=== PATIENT | female | born 1995 | race Caucasian/White ===

== ENCOUNTER 2019-05-09 11:17 | Emergency (ER) | payer OTHER, SELFPAY ==
[2019-05-09 11:40] VITALS: BP 118/67; PULSE 87; RESP 16; TEMP 36.2; O2SAT 99
[2019-05-09 11:53] LABS: Add Manual Diff / Slide Review NO; Basophils Absolute Auto 0 /uL (0-100); Basophils Percent Auto 0.5 % (0-2); Eosinophils Absolute Auto 100 /uL (0-450); Eosinophils Percent Auto 1.3 % (2-4); Hematocrit 39.1 % (36-46); Lymphocytes Absolute Auto 2200 /uL (1100-4500); Lymphocytes Percent Auto 36.3 % (25-40); Mean Corpuscular HGB Conc 33.3 % (30-36); Mean Corpuscular Hemoglobin 27.3 PG (26-34); Mean Corpuscular Volume 82.1 fL (80-100); Monocytes Absolute Auto 600 /uL (0-900); Monocytes Percent Auto 9.5 % (3-14); Neutrophils Absolute Auto 3100 /uL (1500-7000); Neutrophils Percent Auto 52.4 % (50-75); Platelet Count 298 X10^3/uL (150-400); Red Blood Cell Count 4.76 X10^6/uL (4.0-5.2); Red Cell Distribution Width 14.4 % (11.6-14.8)
[2019-05-09 12:04] LABS: Blood Urea Nitrogen 19 mg/dL (7-17); Calcium 9.6 mg/dL (8.4-10.2); Carbon Dioxide 27 mmol/L (22-32); Chloride 103 mmol/L (98-107); Estimated Glomerular Filt Rate > 60.0 mL/min (>60); Glucose 105 mg/dL (70-100); HEMOLYSIS < 15 (0-50); Potassium 3.8 mmol/L (3.4-5.1); Sodium 140 mmol/L (137-145)
--- NOTE | 2019-05-09 12:05 | ED.HA ---
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 She went in for a regular checkup as it is time for her new prescription and during the exam she was found to have bilateral optic disc swelling. She denies any known visual change. She does state that she has had episodes of headaches off and on for many months but no other neurologic symptoms. She denies any injury. She has had no fever or chills. She did have an episode like this a few years ago and had a normal MRI and lumbar puncture and symptoms improved after she stopped taking her oral contraceptive. She was sent here for evaluation. She denies any ataxia, confusion or trouble controlling her bladder MD Complaint: headache Onset (ago): month(s) Onset description: gradual Location: diffuse Severity: moderate Quality: aching Relieving factors: nothing Exacerbating factors: none Associated symptoms: none Treatments prior to arrival: none Related Data Home Medications Medication Instructions Recorded Confirmed No Known Home Medications 05/09/19 05/09/19 Allergies Allergy/AdvReac Type Severity Reaction Status Date / Time No Known Drug Allergies Allergy Verified 05/09/19 12:08 Review of Systems Constitutional Constitutional: Denies chills, Denies fatigue, Denies fever(s), Denies frequent falls, Reports headache(s), Denies lethargy and Denies weakness Eyes Eyes: Denies change in vision, Denies eye discharge, Denies irritation and Denies loss of vision ENT Ears, Nose, Mouth, and Throat: Denies change in voice, Denies dizziness, Reports headache(s), Denies neck pain, Denies sore throat and Denies throat swelling Cardiovascular Cardiovascular: Denies chest pain, Denies irregular heart rhythm, Denies lightheadedness, Denies palpitations, Denies dyspnea, Denies dyspnea on exertion and Denies orthopnea Respiratory Respiratory: Denies cough, Denies dyspnea, Denies dyspnea on exertion and Denies wheezing Gastrointestinal Gastrointestinal: Denies abdominal pain, Denies change in bowel habits, Denies diarrhea, Denies nausea and Denies vomiting Genitourinary Genitourinary: Denies hematuria, Denies flank pain, Denies urinary incontinence and Denies urinary urgency Musculoskeletal Musculoskeletal: Denies back pain, Denies muscle weakness, Denies neck pain, Denies numbness and Denies tingling Integumentary/Breasts Skin/Breast: Denies pruritus, Denies erythema, Denies rash and Denies wounds Neurologic Neurologic: Denies behavioral changes, Denies confusion, Denies dizziness, Denies frequent falls, Reports headache(s), Denies loss of vision, Denies numbness, Denies tingling and Denies weakness Psychiatric Psychiatric: Denies anxiety, Denies behavioral changes, Denies confusion, Denies depression, Denies homicidal ideation and Denies suicidal ideation Endocrine Endocrine: Denies fatigue, Denies flushing and Denies palpitations Hematologic/Lymphatic Hematologic/Lymphatic: Denies easy bruising Allergic/Immunologic Allergic/Immunologic: Denies urticaria, Denies throat swelling and Denies wheezing PFSH Social History Smoking Status: Never smoker Social History Smoking Status: Never smoker Exam Narrative Exam Narrative: GENERAL: [23] year old patient appears stated age. Well-nourished, well-developed patient, in mild distress. HEAD: Atraumatic. Normocephalic. EYES: Pupils equal round and reactive. Extraocular motions intact. No scleral icterus. No injection or drainage. ENT: Nose without bleeding, purulent drainage. Throat without erythema, tonsillar hypertrophy or exudate. Airway patent. NECK: Trachea midline. Non tender CARDIOVASCULAR: Regular rate and rhythm without murmurs, gallops, or rubs. RESPIRATORY: Clear to auscultation. Breath sounds equal bilaterally. No wheezes, rales, or rhonchi. GASTROINTESTINAL: Abdomen soft, non-tender, nondistended. EXTREMITIES: No edema or joint tenderness. BACK: Nontender without deformity or crepitance. No flank tenderness. NEURO: AOx3. SKIN: No rash or erythema of visible areas NIH Stroke Scale 1a. LOC: Patient is alert and keenly responsive (0) 1b. LOC Questions: Patient answers both LOC questions accurately (0) 1c. LOC Commands: Patient performs both tasks correctly (0) 2. Best Gaze: Normal (0) 3. Visual: No visual loss (0) 4. Facial palsy: Normal symmetrical movements (0) 5. Motor arm: No drift (0) 6. Motor leg: No drift (0) 7. Limb ataxia: Absent (0) 8. Sensory: Normal (0) 9. Best language: No aphasia; normal (0) 10. Dysarthria: Normal (0) 11. Extinction and inattention: No abnormality (0) NIHSS: 0 Initial Vital Signs Initial Vital Signs: Vital Signs Temperature 97.2 F L 05/09/19 11:40 Pulse Rate 87 05/09/19 11:40 Respiratory Rate 16 05/09/19 11:40 Blood Pressure 118/67 05/09/19 11:40 Pulse Oximetry 99 05/09/19 11:40 Procedures Lumbar Puncture Time Out Performed: Yes Patient Position: right lateral decubitus Skin Prep: Povidone-Iodine 1% Local Anesthetic: lidocaine 1% Spinal Needle Gauge: 22G Interspace Used: L4-L5 Complications: Need to have other Practitioner Attempt Course Orders Ordered: ED Orders 05/09/19 11:35 Basic Metabolic Panel Stat Complete Blood Count AUTO DIFF Stat Partial Thromboplastin Time Stat Prothrombin Time INR Stat 05/09/19 12:11 MR angio head wo con Stat MR head/brain wo/w con Stat 05/09/19 17:11 CSF culture Stat Cell Count w Diff CSF Stat Glucose CSF Stat HOLD TUBE CSF Stat Total Protein CSF Stat Consultations Consultation #1: Discussion not only with the patient's own kersey department supervisor but also our Ophthalmology to create a cohesive plan. Both specialists are in agreement that an MRI of the brain with and without as well as an MRA with attention to venous flow are appropriate followed by lumbar puncture. In the absence of any significant findings there is no specific therapy or treatment recommended other than close follow-up with the PCP who can coordinate the efforts of Ophthalmology and possibly Neurology. I had extensive discussion with the patient and her family. They have had their questions answered to their apparent satisfaction have a firm grasp of return precautions Vital Signs Vital signs: Vital Signs - 8 hr 05/09/19 11:40 05/09/19 12:55 05/09/19 13:00 Temperature 97.2 F L Pulse Rate 87 76 81 Respiratory Rate 16 17 16 Blood Pressure 118/67 Blood Pressure [Right Arm] 108/68 92/59 L Pulse Oximetry 99 98 99 05/09/19 14:00 Temperature Pulse Rate 94 H Respiratory Rate 16 Blood Pressure Blood Pressure [Right Arm] 103/56 L Pulse Oximetry 100 MDM - Headache Lab Data Result diagrams: 05/09/19 11:35 05/09/19 11:35 Labs: Lab Results 05/09/19 05/09/19 05/09/19 Range/Units 11:35 11:35 11:35 WBC 6.0 (4.5-11.0) X10^3/uL RBC 4.76 (4.0-5.2) X10^6/uL Hgb 13.0 (12.0-16.0) g/dL Hct 39.1 (36-46) % MCV 82.1 (80-100) fL MCH 27.3 (26-34) PG MCHC 33.3 (30-36) % RDW 14.4 (11.6-14.8) % Plt Count 298 (150-400) X10^3/uL Neut % (Auto) 52.4 (50-75) % Lymph % (Auto) 36.3 (25-40) % [place] % (Auto) 9.5 (3-14) % Eos % (Auto) 1.3 L (2-4) % Baso % (Auto) 0.5 (0-2) % Neut # (Auto) 3100 (5659-5459) /uL Lymph # (Auto) 2200 (1626-4698) /uL [place] # (Auto) 600 (0-900) /uL Eos # (Auto) 100 (0-450) /uL Baso # (Auto) 0 (0-100) /uL PT 11.1 (10.1-12.7) SECONDS INR 1.0 (0.9-1.3) APTT 37 H (26.4-36.2) SECONDS Sodium 140 (137-145) mmol/L Potassium 3.8 (3.4-5.1) mmol/L Chloride 103 (98-107) mmol/L Carbon Dioxide 27 (22-32) mmol/L BUN 19 H (7-17) mg/dL Creatinine 0.50 L (0.52-1.04) mg/dL Estimated GFR > 60.0 (>60) mL/min BUN/Creatinine Ratio 38.0 H (6-22) Glucose 105 H (70-100) mg/dL Calcium 9.6 (8.4-10.2) mg/dL CSF Tube Number CSF Volume CSF Appearance (Clear) CSF Color (Colorless) CSF WBC (0-5) MONO/uL CSF RBC RBC /uL CSF Mononuclear WBCs CSF Polynuclear WBCs CSF Glucose (40-70) mg/dL CSF Total Protein (12-60) mg/dL 05/09/19 Range/Units 17:11 WBC (4.5-11.0) X10^3/uL RBC (4.0-5.2) X10^6/uL Hgb (12.0-16.0) g/dL Hct (36-46) % MCV (80-100) fL MCH (26-34) PG MCHC (30-36) % RDW (11.6-14.8) % Plt Count (150-400) X10^3/uL Neut % (Auto) (50-75) % Lymph % (Auto) (25-40) % [place] % (Auto) (3-14) % Eos % (Auto) (2-4) % Baso % (Auto) (0-2) % Neut # (Auto) (0061-9736) /uL Lymph # (Auto) (1128-1634) /uL [place] # (Auto) (0-900) /uL Eos # (Auto) (0-450) /uL Baso # (Auto) (0-100) /uL PT (10.1-12.7) SECONDS INR (0.9-1.3) APTT (26.4-36.2) SECONDS Sodium (137-145) mmol/L Potassium (3.4-5.1) mmol/L Chloride (98-107) mmol/L Carbon Dioxide (22-32) mmol/L BUN (7-17) mg/dL Creatinine (0.52-1.04) mg/dL Estimated GFR (>60) mL/min BUN/Creatinine Ratio (6-22) Glucose (70-100) mg/dL Calcium (8.4-10.2) mg/dL CSF Tube Number 2 CSF Volume 2.0 ml CSF Appearance Clear (Clear) CSF Color Colorless (Colorless) CSF WBC 2 (0-5) MONO/uL CSF RBC 1 RBC /uL CSF Mononuclear WBCs Not Reportable CSF Polynuclear WBCs Not Reportable CSF Glucose 50 (40-70) mg/dL CSF Total Protein 28 (12-60) mg/dL Discharge Plan Departure Patient Disposition: Home Clinical Impression: Optic disc edema Headache Qualifiers: Headache type: unspecified Headache chronicity pattern: unspecified pattern Intractability: not intractable Qualified Code(s): R51 - Headache Instructions: DI for Headache Activity Restrictions/Additional Instructions: *You have been diagnosed with [chronic headaches and bilateral optic disc edema] *What to do: *Take medications as directed *Follow up with your primary care provider in 2-3 days, call for an appointment. Let them know you were seen in the Emergency Department and that we ask that you be seen in follow up *Return to ER if you should have any new, worsening or concerning symptoms Prescriptions: No Action No Known Home Medications RF: 0 Referrals: Fredy Benavides MD [Physician] - Guadalupe Gilliam ARNP [Primary Care Provider] -
--- NOTE | 2019-05-09 12:11 | DI.MRI.S_ITS ---
PROCEDURE: MR ANGIO HEAD WO CON INDICATIONS: bilateral disc edema on exam, MRV per ophtho for ICP TECHNIQUE: Sagittal T1 spin echo through the brain. Coronal 2D [id number] MR venogram, with 3-dimensional [id number] (MIP) reformats of the intracranial veins then performed. COMPARISON: None. FINDINGS: Image quality: Excellent. Veins: Sagittal, straight, transverse, and sigmoid sinuses all appear patent. Brain: Limited images through the brain parenchyma show no intracranial bleeds or mass effects. IMPRESSION: No evidence of dural sinus thrombosis. Dictated by: Viridiana Huang MD, PhD on 05/09/2019 at 14:49 Approved by: Viridiana Huang MD, PhD on 05/09/2019 at 14:51
--- NOTE | 2019-05-09 12:11 | DI.MRI.S_ITS ---
PROCEDURE: MR HEAD/BRAIN WO/W CON INDICATIONS: bilateral disc edema, per ophtho TECHNIQUE: Noncontrast sagittal T1 spin echo, axial T2 fast spin echo, axial FLAIR, axial gradient echo, axial diffusion and ADC through the brain. Axial/sagittal/coronal 3-D CISS, thin-slice axial T1 spin echo with fat saturation through the skull base. After the administration of contrast, axial and coronal thin-slice T1 spin echo with fat saturation through the skull base, axial T1 spin echo with fat saturation through the brain. COMPARISON: None. FINDINGS: Image quality: Excellent. CSF spaces: Ventricles are normal in size and shape. No extra-axial fluid collections. Basal cisterns are patent. Brain: No intracranial bleeds or mass effects. No abnormal intracranial enhancement. Diffusion weighted images show no acute ischemic insults. Herrera-white matter interface is intact. Brainstem is normal. Normal intravascular flow voids are present. Skull and face: Calvarial marrow signal is normal. Orbits appear normal. No explanation for optic disc edema. Sinuses: Sinuses and mastoids appear clear. IMPRESSION: 1. No acute process. 2. No evidence of increased intracranial pressure. 3. No recent infarct. Dictated by: Krissy Zuleta M.D. on 05/09/2019 at 16:01 Approved by: Krissy Zuleta M.D. on 05/09/2019 at 16:03
[2019-05-09 12:55] VITALS: BP 108/68; PULSE 76; RESP 17; O2SAT 98
[2019-05-09 13:00] VITALS: BP 92/59; PULSE 81; RESP 16; O2SAT 99
[2019-05-09 14:00] VITALS: BP 103/56; PULSE 94; RESP 16; O2SAT 100
[2019-05-09] MEDS: LIDOCAINE 1% (PF) 2 ML (14:46)
--- NOTE | 2019-05-09 15:04 | DI.RAD.S_ITS ---
PROCEDURE: FL GUIDED LUMBAR PUNCTURE LP INDICATIONS: increased ICP, need labs (CSF) TECHNIQUE: The indications, alternatives, benefits, risks, and complications were explained to the patient. Written informed consent was obtained and placed in the chart. The patient was placed in a prone position on the fluoroscopy table, and a level was chosen for percutaneous access under fluoroscopic guidance. The site was prepped and draped in a sterile fashion. After local anaesthetic, a spinal needle was then used to enter the intrathecal space, with return of cerebrospinal fluid. After obtaining sufficient fluid, the needle was then withdrawn, and a bandage applied to the puncture site. FINDINGS: Puncture level: L4-L5 Needle: Spinal needle. Opening pressure: 22 cm H2O. CSF volume and description: 11-12 cc of clear CSF Medications: 1% lidocaine for anaesthesia. Complications: None Laboratories: As ordered by referring clinician. IMPRESSION: Successful fluoroscopically guided lumbar puncture. Opening pressure measures 22 cm H2O. Dictated by: Tigre Newell M.D. on 05/09/2019 at 17:46 Approved by: Tigre Newell M.D. on 05/09/2019 at 17:47
[2019-05-09 15:15] LABS: Prothrombin Time 11.1 SECONDS (10.1-12.7)
[2019-05-09 15:18] LABS: PTT Partial Thromboplastin Tim 37 SECONDS (26.4-36.2)
[2019-05-09 17:22] LABS: Appearance CSF Clear (Clear); CSF Tube Number 2; CSF Tube Volume 2.0 mL; Color CSF Colorless (Colorless); HOLD TUBE CSF HELD; Red Blood Cell CSF 1 RBC /uL; White Blood Cell CSF 2 MONO/uL (0-5)
[2019-05-09 17:25] LABS: Glucose CSF 50 mg/dL (40-70); Total Protein CSF 28 mg/dL (12-60)
[2019-05-09 18:41] VITALS: BP 118/70; PULSE 81; RESP 16; O2SAT 99
== END 2019-05-09 18:41 | disposition home or self-care (01) ==
PROVIDERS: Emergency Provider Emergency Medicine; PCP Nurse Practitioner Gerontology
DX: H47.10 Unspecified papilledema (principal); R51 Headache
CPT/HCPCS: 36415; 62270; 62272; 70544; 70553; 76000; 80048; 82945; 84157; 85025; 85610; 85730; 87070; 87205; 89051; 99283; 99284; A9579